=== PATIENT | female | born 1965 | race African-American/Black ===

== ENCOUNTER 2017-07-23 12:46 | Inpatient (IN) | payer MEDICARE, OTHER ==
[2017-07-23 15:23] VITALS: BMI 21.6
[2017-07-23] MEDS ORDERED: guaiFENesin/D-METHORPHAN HB 10 ML UNIT-DOSE CUPS PO PRN (16:02)
[2017-07-23] MEDS ORDERED: P-EPHED 60MG/TRIPROLIDI 2.5MG TABLET PO PRN (16:02)
[2017-07-23] MEDS ORDERED: LOPERAMIDE HCL 2 MG CAPSULE PO PRN (16:02)
[2017-07-23] MEDS ORDERED: MAGNESIUM CITRATE 300 ML BOTTLE PO PRN (16:02)
[2017-07-23] MEDS ORDERED: hydrOXYzine PAMOATE 50 MG CAPSULE (FP) PO PRN (16:02)
[2017-07-23] MEDS ORDERED: MAGNESIUM HYDROX 2400MG/30ML ORAL SUSPENSION 30 ML CUP PO PRN (16:02)
[2017-07-23] MEDS ORDERED: ACETAMINOPHEN 325 MG TABLET (FP) PO PRN (16:02)
[2017-07-23] MEDS ORDERED: IBUPROFEN 400 MG TABLET (FP) PO PRN (16:02)
[2017-07-23] MEDS ORDERED: MENTHOL/PHENOL 1 EACH UD MM PRN (16:02)
[2017-07-23] MEDS ORDERED: MAG HYDROX/AL HYDROX/SIMETH 30 ML UNIT-DOSE CUP PO PRN (16:02)
--- NOTE | 2017-07-23 16:02 | HP ---
Admission [facility] Chief Complaint: reqeusting inpatient for crack cocaien and alcohol use Allergies/Adverse Reactions: Allergies Allergy/AdvReac Type Severity Reaction Status Date / Time nicotine [From Habitrol] Allergy Mild Rash Verified 07/23/17 15:31 NICOTINE PATCH Allergy Mild Rash Uncoded 07/23/17 15:31 History of Present Illness: 52 yo f with h/o crack cocaine and alcohol dependence requesting inpatient rehab , went to ED becasue of eye infection a ew days ago and was treatd with antibiotics- 2/2 drug use PMHX HIV+, no shicidal ideation at this time, no h/o seizures. does nto drink every day. no alcohol withdrawal syndrome Exam Limitations: No Limitations - Ebola screening Have you traveled outside of the country in the last 21 days: No Have you had contact with anyone from an Ebola affected area: No Have you been sick,other than usual withdrawal symptoms: No Do you have a fever: No - Review of Systems Constitutional: No Symptoms Reported EENT: reports: Eye Pain (infection from drug use), Tearing Respiratory: reports: No Symptoms reported Cardiac: reports: No Symptoms Reported GI: reports: No Symptoms Reported : reports: No Symptoms Reported Musculoskeletal: reports: No Symptoms Reported Integumentary: reports: No Symptoms Reported Neuro: reports: No Symptoms reported Endocrine: reports: No Symptoms Reported Hematology: reports: No Symptoms Reported Psychiatric: reports: Judgement Intact, Mood/Affect Appropiate, Orientated x3, Anxious, Depressed Other Systems: Reviewed and Negative Patient History - Patient Medical History Hx Anemia: Yes (no med on albuterol inhaler) Hx Asthma: Yes Hx Chronic Obstructive Pulmonary Disease (COPD): No Hx Cancer: No Hx Cardiac Disorders: No Hx Congestive Heart Failure: No Hx Hypertension: No Hx Hypercholesterolemia: No Hx Pacemaker: No HX Cerebrovascular Accident: No Hx Seizures: No Hx Dementia: No Hx Diabetes: No Hx Gastrointestinal Disorders: Yes (gerd) Hx Liver Disease: No Hx Genitourinary Disorders: No Hx Sexually Transmitted Disorders: Yes (syphilis) Hx Renal Disease (ESRD): No Hx Thyroid Disease: No Hx Human Immunodeficiency Virus (HIV): Yes (since 1990) Hx Hepatitis C: Yes (since 1990) Hx Depression: Yes Hx Suicide Attempt: No Hx Bipolar Disorder: No Hx Schizophrenia: No - Patient Surgical History Past Surgical History: Yes Hx Neurologic Surgery: No Hx Cataract Extraction: No Hx Cardiac Surgery: No Hx Lung Surgery: No Hx Breast Surgery: Yes (biopsy of lumpes in right breast,benign,2012 follow up with pmd) Hx Breast Biopsy: No Hx Abdominal Surgery: Yes (appendectomy in 1978) Hx Appendectomy: Yes (AT THE AGE OF 13) Hx Cholecystectomy: No Hx Genitourinary Surgery: No Hx Section: No Hx Orthopedic Surgery: No Anesthesia Reaction: No - PPD History Previous Implant?: Yes Documented Results: Negative w/proof Date: 07/11/12 Results: 0 mm PPD to be Administered?: Yes - Reproductive History Patient is a Female of Child Bearing Age (11 -55 yrs old): Yes Patient : No - Smoking Cessation Smoking history: Current every day smoker Have you smoked in the past 12 months: Yes Aproximately how many cigarettes per day: 20 Cigars Per Day: 0 Hx Chewing Tobacco Use: No Initiated information on smoking cessation: Yes 'Breaking Loose' booklet given: 07/23/17 - Substance & Tx. History Hx Alcohol Use: Yes Hx Substance Use: Yes Substance Use Type: Alcohol, Cocaine Hx Substance Use Treatment: Yes ([facility]) - Substances Abused Alcohol Route: Oral Frequency: 1-2 times per week Amount used: 1-2 cans of malt liquor Age of first use: 12 Date of Last Use: 07/16/17 Crack Route: Smoking Frequency: Daily Amount used: $400 Age of first use: 18 Date of Last Use: 07/16/17 Family Disease History - Family Disease History Family Disease History: CA: Sister (ca of breast), Respiratory: Father (alcohol) Admission Physical Exam S - Vital Signs Vital Signs: Vital Signs - 24 hr 07/23/17 15:18 Temperature 97.4 F L Pulse Rate 98 H Respiratory 20 Rate Blood Pressure 146/94 - Physical General Appearance: Yes: Within Normal Limits, No Apparent Distress, Nourished, Appropriately Dressed, Disheveled, Mild Distress, Thin, Tremorous, Irritable, Sweating, Anxious HEENTM: Yes: Within Normal Limits, EOMI, Hearing grossly Normal, Normal ENT Inspection, Normocephalic, Normal Voice, ANA LAURA, Pharynx Normal, Tm's normal Respiratory: Yes: Within Normal Limits, Chest Non-Tender, Lungs Clear, Normal Breath Sounds, No Respiratory Distress, No Accessory Muscle Use Neck: Yes: Within Normal Limits, No masses,lesions,Nodules, Supple, Trachea in good position Breast: Yes: Breast Exam Deferred Cardiology: Yes: Within Normal Limits, Regular Rhythm, Regular Rate, S1, S2 Abdominal: Yes: Within Normal Limits, Normal Bowel Sounds, Non Tender, Flat, Soft Genitourinary: Yes: Within Normal Limits Back: Yes: Within Normal Limits, Normal Inspection Musculoskeletal: Yes: Within Normal Limits, full range of Motion, Gait Steady, Pelvis Stable Extremities: Yes: Within Normal Limits, Normal Capillary Refill, Normal Inspection, Normal Range of Motion, Non-Tender Neurological: Yes: air sampler II-XII NML intact, Fully Oriented, Alert, Motor Strength 5/5, Normal Response, Depressed Affect Integumentary: Yes: Within Normal Limits, Normal Color, Dry, Warm Lymphatic: Yes: Within Normal Limits - Diagnostic (1) Eye inflamed Current Visit: Yes Status: Acute (2) Alcohol dependence Current Visit: No Status: Active (3) Asthma Current Visit: No Status: Active (4) Cocaine dependence Current Visit: No Status: Active (5) Gastroesophageal reflux disease Current Visit: No Status: Active (6) Human immunodeficiency virus infection Current Visit: No Status: Active Cleared for Admission [facility] - Detox or Rehab Claeared for Rehab Admission: Yes [facility] Breath Alcohol Content Breath Alcohol Content: 0 Urine Pregancy Test - Result Urine Test Results: Negative- NO Line Present Urine Drug Screen - Results Drug Screen Negative: Yes Inpatient Rehab Admission - Initial Determination Are CD services needed?: Yes Free of communicable disease: Yes Not in need of hospitalization: Yes - Rehab Admission Criteria Lacks judgement: Yes Patient is meeting Inpatient Rehab admission criteria:: Yes
[2017-07-23] MEDS ORDERED: ALBUTEROL SO4 18 GM HFA INHALER IH PRN (16:04)
[2017-07-23] MEDS ORDERED: DOCUSATE SODIUM 100 MG CAPSULE (FP) PO PRN (16:04)
[2017-07-23] MEDS ORDERED: NICOTINE 14 MG/24 HOURS TOPICAL PATCH TD SCH (16:15)
[2017-07-23] MEDS ORDERED: NICOTINE 21 MG/24 HOURS TOPICAL PATCH TD SCH (16:15)
[2017-07-23] MEDS: TOBRAMYCIN 0.3% OPHTH SOLN 5 ML BOTTLE OD SCH ×2 (18:31→21:15)
[2017-07-23] MEDS: PANTOPRAZOLE 40 MG TABLET (FP) PO SCH (18:32)
[2017-07-23] MEDS ORDERED: PT OWN MED DRAWER 7, Y5N ONE (18:36)
[2017-07-23] MEDS ORDERED: TUBERCULIN PPD 5 TU/0.1ML VIAL ID ONE ×2 (19:34→20:58)
[2017-07-23] MEDS: EFAVIRENZ 600 MG TABLET PO SCH (21:13)
[2017-07-23] MEDS: ABACAVIR SULFATE 300 MG TABLET PO SCH (21:13)
[2017-07-23] MEDS: THIAMINE HCL 100 MG TABLET (FP) PO SCH (21:14)
[2017-07-23] MEDS: valACYclovir HCL 500 MG TABLET (FP) PO SCH (21:14)
[2017-07-23] MEDS: ARTIFICIAL TEARS (POLYVINYL ALCOHOL 1.4%) OPTH DROPS OD SCH (21:15)
[2017-07-23] MEDS: STAVUDINE PO SCH (21:55)
[2017-07-24] MEDS: TOBRAMYCIN 0.3% OPHTH SOLN 5 ML BOTTLE OD SCH ×6 (03:33→21:41)
[2017-07-24] MEDS ORDERED: PT OWN MED DRAWER 7, Y5N ONE ×3 (04:34→13:05)
[2017-07-24] MEDS: valACYclovir HCL 500 MG TABLET (FP) PO SCH ×2 (06:17→13:09)
[2017-07-24] MEDS: ARTIFICIAL TEARS (POLYVINYL ALCOHOL 1.4%) OPTH DROPS OD SCH ×3 (06:17→21:41)
[2017-07-24 10:43] LABS: HEMATOCRIT 38.2 % (32.4-45.2); HEMOGLOBIN 11.7 GM/dL (10.7-15.3); MCH 25.3 pg (25.7-33.7); MCHC 30.5 g/dl (32.0-36.0); MEAN CELL VOLUME 82.8 fl (80-96); MEAN PLT VOLUME 7.9 fl (7.5-11.1); PLATELET COUNT 211 K/MM3 (134-434); RBC 4.61 M/mm3 (3.60-5.2); RDW 15.5 % (11.6-15.6); WHITE BLOOD COUNT 5.8 K/mm3 (4.0-10.0)
[2017-07-24] MEDS: PANTOPRAZOLE 40 MG TABLET (FP) PO SCH (11:01)
[2017-07-24] MEDS: PRENATAL VITAMINS W/ FOLIC ACID TABLET (FP) PO SCH (11:01)
[2017-07-24] MEDS: ABACAVIR SULFATE 300 MG TABLET PO SCH ×2 (11:02→21:42)
[2017-07-24] MEDS: STAVUDINE PO SCH ×2 (11:02→21:42)
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
[2017-07-24 11:14] LABS: CHLORIDE 101 mmol/L (98-107); POTASSIUM 3.8 mmol/L (3.5-5.1); SODIUM 139 mmol/L (136-145)
[2017-07-24 11:34] LABS: ALBUMIN 3.7 g/dl (3.4-5.0); ALK PHOS 90 U/L (45-117); ANION GAP 13 (8-16); BILIRUBIN,TOTAL 0.4 mg/dL (0.2-1.0); BLOOD UREA NITROGEN 9 mg/dL (7-18); CALCIUM 9.6 mg/dL (8.5-10.1); CO2 25 mmol/L (21-32); CREATININE 0.5 mg/dL (0.55-1.02); GLUCOSE,RANDOM 99 mg/dL (74-106); SGOT/AST 28 U/L (15-37); SGPT/ALT 22 U/L (12-78); TOT PROT 7.9 g/dl (6.4-8.2)
[2017-07-24] MEDS ORDERED: QUEtiapine FUMARATE 25 MG TABLET (FP) PO PRN ×2 (14:28→14:42)
--- NOTE | 2017-07-24 17:13 | EKG ---
Test Reason : Blood Pressure : / mmHG Vent. Rate : 076 BPM Atrial Rate : 076 BPM P-R Int : 122 ms QRS Dur : 070 ms QT Int : 384 ms P-R-T Axes : 064 060 048 degrees QTc Int : 432 ms NORMAL SINUS RHYTHM NORMAL ECG NO PREVIOUS ECGS AVAILABLE Confirmed by ASHANTI OCASIO MD ([id number]) on 07/24/2017 5:13:10 PM Referred By: Confirmed By:ASHANTI OCASIO MD
[2017-07-24] MEDS: EFAVIRENZ 600 MG TABLET PO SCH (21:42)
[2017-07-24] MEDS: THIAMINE HCL 100 MG TABLET (FP) PO SCH (21:42)
[2017-07-25] MEDS: TOBRAMYCIN 0.3% OPHTH SOLN 5 ML BOTTLE OD SCH ×6 (02:35→21:17)
[2017-07-25] MEDS ORDERED: PT OWN MED DRAWER 7, Y5N ONE ×3 (03:18→08:42)
[2017-07-25] MEDS: ARTIFICIAL TEARS (POLYVINYL ALCOHOL 1.4%) OPTH DROPS OD SCH ×3 (06:49→21:18)
[2017-07-25] MEDS: PRENATAL VITAMINS W/ FOLIC ACID TABLET (FP) PO SCH (10:06)
[2017-07-25] MEDS: valACYclovir HCL 500 MG TABLET (FP) PO SCH (10:06)
[2017-07-25] MEDS: PANTOPRAZOLE 40 MG TABLET (FP) PO SCH (10:06)
[2017-07-25] MEDS: STAVUDINE PO SCH ×2 (10:07→21:18)
[2017-07-25] MEDS: ABACAVIR SULFATE 300 MG TABLET PO SCH ×2 (10:08→21:16)
[2017-07-25 14:36] LABS: URINE APPEARANCE CLEAR; URINE BILIRUBIN NEGATIVE (NEGATIVE); URINE BLOOD NEGATIVE (NEGATIVE); URINE COLOR LTYELLOW; URINE GLUCOSE (UA) NEGATIVE (NEGATIVE); URINE KETONE NEGATIVE (NEGATIVE); URINE LEUK ESTERASE NEGATIVE (NEGATIVE); URINE NITRITE NEGATIVE (NEGATIVE); URINE PROTEIN NEGATIVE (NEGATIVE); URINE UROBILINOGEN NEGATIVE mg/dL (0.2-1.0)
[2017-07-25 15:11] LABS: RPR REACTIVE 1:1 (NONREACTIVE)
[2017-07-25 15:17] LABS: TREPONEMA ANTIBODY PREVIOUSLY REACTIVE (NONREACTIVE)
[2017-07-25] MEDS: EFAVIRENZ 600 MG TABLET PO SCH (21:16)
[2017-07-25] MEDS: THIAMINE HCL 100 MG TABLET (FP) PO SCH (21:16)
[2017-07-26] MEDS: TOBRAMYCIN 0.3% OPHTH SOLN 5 ML BOTTLE OD SCH ×6 (01:32→21:10)
[2017-07-26] MEDS ORDERED: PT OWN MED DRAWER 7, Y5N ONE ×6 (05:50→21:05)
[2017-07-26] MEDS: ARTIFICIAL TEARS (POLYVINYL ALCOHOL 1.4%) OPTH DROPS OD SCH ×3 (06:29→21:10)
[2017-07-26] MEDS: ABACAVIR SULFATE 300 MG TABLET PO SCH ×2 (09:56→21:11)
[2017-07-26] MEDS: PRENATAL VITAMINS W/ FOLIC ACID TABLET (FP) PO SCH (09:56)
[2017-07-26] MEDS: PANTOPRAZOLE 40 MG TABLET (FP) PO SCH (09:56)
[2017-07-26] MEDS: valACYclovir HCL 500 MG TABLET (FP) PO SCH (09:56)
[2017-07-26] MEDS: STAVUDINE PO SCH ×2 (09:57→21:09)
[2017-07-26] MEDS: EFAVIRENZ 600 MG TABLET PO SCH (21:09)
[2017-07-26] MEDS: THIAMINE HCL 100 MG TABLET (FP) PO SCH (21:09)
[2017-07-27] MEDS ORDERED: PT OWN MED DRAWER 7, Y5N ONE ×7 (03:11→19:10)
[2017-07-27] MEDS: ARTIFICIAL TEARS (POLYVINYL ALCOHOL 1.4%) OPTH DROPS OD SCH ×3 (06:30→21:31)
[2017-07-27] MEDS: TOBRAMYCIN 0.3% OPHTH SOLN 5 ML BOTTLE OD SCH ×5 (06:31→21:31)
[2017-07-27] MEDS: PANTOPRAZOLE 40 MG TABLET (FP) PO SCH (09:43)
[2017-07-27] MEDS: PRENATAL VITAMINS W/ FOLIC ACID TABLET (FP) PO SCH (09:43)
[2017-07-27] MEDS: valACYclovir HCL 500 MG TABLET (FP) PO SCH (09:44)
[2017-07-27] MEDS: STAVUDINE PO SCH ×2 (09:46→21:32)
[2017-07-27] MEDS: ABACAVIR SULFATE 300 MG TABLET PO SCH ×2 (09:46→21:31)
[2017-07-27] MEDS: THIAMINE HCL 100 MG TABLET (FP) PO SCH (21:31)
[2017-07-27] MEDS: EFAVIRENZ 600 MG TABLET PO SCH (21:31)
[2017-07-28] MEDS: ARTIFICIAL TEARS (POLYVINYL ALCOHOL 1.4%) OPTH DROPS OD SCH ×3 (06:32→21:06)
[2017-07-28] MEDS: TOBRAMYCIN 0.3% OPHTH SOLN 5 ML BOTTLE OD SCH ×5 (06:32→21:06)
[2017-07-28] MEDS ORDERED: PT OWN MED DRAWER 7, Y5N ONE ×4 (08:28→19:34)
[2017-07-28] MEDS: ABACAVIR SULFATE 300 MG TABLET PO SCH ×2 (10:16→21:06)
[2017-07-28] MEDS: PRENATAL VITAMINS W/ FOLIC ACID TABLET (FP) PO SCH (10:16)
[2017-07-28] MEDS: PANTOPRAZOLE 40 MG TABLET (FP) PO SCH (10:17)
[2017-07-28] MEDS: valACYclovir HCL 500 MG TABLET (FP) PO SCH (10:17)
[2017-07-28] MEDS: STAVUDINE PO SCH ×2 (10:17→21:07)
[2017-07-28] MEDS: EFAVIRENZ 600 MG TABLET PO SCH (21:06)
[2017-07-28] MEDS: THIAMINE HCL 100 MG TABLET (FP) PO SCH (21:06)
[2017-07-29] MEDS ORDERED: PT OWN MED DRAWER 7, Y5N ONE ×2 (06:17→06:28)
[2017-07-29] MEDS: TOBRAMYCIN 0.3% OPHTH SOLN 5 ML BOTTLE OD SCH ×5 (06:26→21:23)
[2017-07-29] MEDS: ARTIFICIAL TEARS (POLYVINYL ALCOHOL 1.4%) OPTH DROPS OD SCH ×3 (06:26→21:24)
[2017-07-29] MEDS: STAVUDINE PO SCH ×2 (10:00→21:23)
[2017-07-29] MEDS: ABACAVIR SULFATE 300 MG TABLET PO SCH ×2 (10:01→21:22)
[2017-07-29] MEDS: PRENATAL VITAMINS W/ FOLIC ACID TABLET (FP) PO SCH (10:01)
[2017-07-29] MEDS: PANTOPRAZOLE 40 MG TABLET (FP) PO SCH (10:01)
[2017-07-29] MEDS: valACYclovir HCL 500 MG TABLET (FP) PO SCH (10:01)
[2017-07-29] MEDS: NICOTINE POLACRILEX 2 MG GUM BC PRN (13:21)
[2017-07-29] MEDS: THIAMINE HCL 100 MG TABLET (FP) PO SCH (21:22)
[2017-07-29] MEDS: EFAVIRENZ 600 MG TABLET PO SCH (21:22)
[2017-07-30] MEDS: ARTIFICIAL TEARS (POLYVINYL ALCOHOL 1.4%) OPTH DROPS OD SCH ×3 (06:31→21:17)
[2017-07-30] MEDS: TOBRAMYCIN 0.3% OPHTH SOLN 5 ML BOTTLE OD SCH ×5 (06:31→21:16)
[2017-07-30] MEDS ORDERED: PT OWN MED DRAWER 7, Y5N ONE ×4 (06:33→21:17)
[2017-07-30] MEDS: PRENATAL VITAMINS W/ FOLIC ACID TABLET (FP) PO SCH (10:09)
[2017-07-30] MEDS: STAVUDINE PO SCH ×2 (10:09→21:16)
[2017-07-30] MEDS: ABACAVIR SULFATE 300 MG TABLET PO SCH ×2 (10:09→21:18)
[2017-07-30] MEDS: PANTOPRAZOLE 40 MG TABLET (FP) PO SCH (10:09)
[2017-07-30] MEDS: valACYclovir HCL 500 MG TABLET (FP) PO SCH (10:10)
[2017-07-30] MEDS: EFAVIRENZ 600 MG TABLET PO SCH (21:15)
[2017-07-30] MEDS: THIAMINE HCL 100 MG TABLET (FP) PO SCH (21:16)
[2017-07-31] MEDS ORDERED: PT OWN MED DRAWER 7, Y5N ONE ×4 (03:24→10:12)
[2017-07-31] MEDS: TOBRAMYCIN 0.3% OPHTH SOLN 5 ML BOTTLE OD SCH ×5 (07:05→21:19)
[2017-07-31] MEDS: ARTIFICIAL TEARS (POLYVINYL ALCOHOL 1.4%) OPTH DROPS OD SCH ×3 (07:05→21:19)
[2017-07-31] MEDS: valACYclovir HCL 500 MG TABLET (FP) PO SCH (10:09)
[2017-07-31] MEDS: PRENATAL VITAMINS W/ FOLIC ACID TABLET (FP) PO SCH (10:09)
[2017-07-31] MEDS: PANTOPRAZOLE 40 MG TABLET (FP) PO SCH (10:09)
[2017-07-31] MEDS: STAVUDINE PO SCH ×2 (10:10→21:18)
[2017-07-31] MEDS: ABACAVIR SULFATE 300 MG TABLET PO SCH ×2 (10:26→21:18)
[2017-07-31] MEDS: EFAVIRENZ 600 MG TABLET PO SCH (21:18)
[2017-07-31] MEDS: THIAMINE HCL 100 MG TABLET (FP) PO SCH (21:19)
[2017-08-01] MEDS ORDERED: PT OWN MED DRAWER 7, Y5N ONE ×4 (03:08→16:39)
[2017-08-01] MEDS: ARTIFICIAL TEARS (POLYVINYL ALCOHOL 1.4%) OPTH DROPS OD SCH ×3 (06:25→21:16)
[2017-08-01] MEDS: TOBRAMYCIN 0.3% OPHTH SOLN 5 ML BOTTLE OD SCH ×5 (06:25→21:16)
[2017-08-01] MEDS: valACYclovir HCL 500 MG TABLET (FP) PO SCH (10:14)
[2017-08-01] MEDS: STAVUDINE PO SCH ×2 (10:15→21:17)
[2017-08-01] MEDS: PRENATAL VITAMINS W/ FOLIC ACID TABLET (FP) PO SCH (10:15)
[2017-08-01] MEDS: PANTOPRAZOLE 40 MG TABLET (FP) PO SCH (10:15)
[2017-08-01] MEDS: ABACAVIR SULFATE 300 MG TABLET PO SCH ×2 (10:15→21:16)
[2017-08-01] MEDS: EFAVIRENZ 600 MG TABLET PO SCH (21:16)
[2017-08-01] MEDS: THIAMINE HCL 100 MG TABLET (FP) PO SCH (21:16)
[2017-08-02] MEDS: ARTIFICIAL TEARS (POLYVINYL ALCOHOL 1.4%) OPTH DROPS OD SCH ×3 (06:27→21:33)
[2017-08-02] MEDS: TOBRAMYCIN 0.3% OPHTH SOLN 5 ML BOTTLE OD SCH ×5 (06:27→21:33)
[2017-08-02] MEDS ORDERED: PT OWN MED DRAWER 7, Y5N ONE ×3 (08:45→16:01)
[2017-08-02] MEDS: PRENATAL VITAMINS W/ FOLIC ACID TABLET (FP) PO SCH (10:17)
[2017-08-02] MEDS: ABACAVIR SULFATE 300 MG TABLET PO SCH ×2 (10:17→21:33)
[2017-08-02] MEDS: valACYclovir HCL 500 MG TABLET (FP) PO SCH (10:17)
[2017-08-02] MEDS: PANTOPRAZOLE 40 MG TABLET (FP) PO SCH (10:17)
[2017-08-02] MEDS: STAVUDINE PO SCH ×2 (10:19→21:33)
[2017-08-02] MEDS: THIAMINE HCL 100 MG TABLET (FP) PO SCH (21:32)
[2017-08-02] MEDS: EFAVIRENZ 600 MG TABLET PO SCH (21:33)
[2017-08-03] MEDS ORDERED: PT OWN MED DRAWER 7, Y5N ONE ×3 (05:53→13:23)
[2017-08-03] MEDS: TOBRAMYCIN 0.3% OPHTH SOLN 5 ML BOTTLE OD SCH ×5 (06:36→21:19)
[2017-08-03] MEDS: ARTIFICIAL TEARS (POLYVINYL ALCOHOL 1.4%) OPTH DROPS OD SCH ×3 (06:36→21:20)
[2017-08-03] MEDS: ABACAVIR SULFATE 300 MG TABLET PO SCH ×2 (10:05→21:19)
[2017-08-03] MEDS: PRENATAL VITAMINS W/ FOLIC ACID TABLET (FP) PO SCH (10:05)
[2017-08-03] MEDS: PANTOPRAZOLE 40 MG TABLET (FP) PO SCH (10:05)
[2017-08-03] MEDS: valACYclovir HCL 500 MG TABLET (FP) PO SCH (10:05)
[2017-08-03] MEDS: STAVUDINE PO SCH ×2 (10:05→21:20)
[2017-08-03] MEDS: THIAMINE HCL 100 MG TABLET (FP) PO SCH (21:18)
[2017-08-03] MEDS: EFAVIRENZ 600 MG TABLET PO SCH (21:19)
[2017-08-04] MEDS ORDERED: PT OWN MED DRAWER 7, Y5N ONE ×3 (01:18→12:46)
[2017-08-04] MEDS: ARTIFICIAL TEARS (POLYVINYL ALCOHOL 1.4%) OPTH DROPS OD SCH ×3 (06:46→21:21)
[2017-08-04] MEDS: TOBRAMYCIN 0.3% OPHTH SOLN 5 ML BOTTLE OD SCH ×5 (06:46→21:20)
[2017-08-04] MEDS: STAVUDINE PO SCH ×2 (10:03→21:21)
[2017-08-04] MEDS: PRENATAL VITAMINS W/ FOLIC ACID TABLET (FP) PO SCH (10:03)
[2017-08-04] MEDS: ABACAVIR SULFATE 300 MG TABLET PO SCH ×2 (10:03→21:20)
[2017-08-04] MEDS: PANTOPRAZOLE 40 MG TABLET (FP) PO SCH (10:03)
[2017-08-04] MEDS: valACYclovir HCL 500 MG TABLET (FP) PO SCH (10:03)
[2017-08-04] MEDS: THIAMINE HCL 100 MG TABLET (FP) PO SCH (21:20)
[2017-08-04] MEDS: EFAVIRENZ 600 MG TABLET PO SCH (21:20)
[2017-08-05] MEDS ORDERED: PT OWN MED DRAWER 7, Y5N ONE ×4 (03:30→16:03)
[2017-08-05] MEDS: ARTIFICIAL TEARS (POLYVINYL ALCOHOL 1.4%) OPTH DROPS OD SCH ×3 (06:38→21:21)
[2017-08-05] MEDS: TOBRAMYCIN 0.3% OPHTH SOLN 5 ML BOTTLE OD SCH ×5 (06:38→21:21)
[2017-08-05] MEDS: STAVUDINE PO SCH ×2 (10:05→21:40)
[2017-08-05] MEDS: valACYclovir HCL 500 MG TABLET (FP) PO SCH (10:06)
[2017-08-05] MEDS: PANTOPRAZOLE 40 MG TABLET (FP) PO SCH (10:06)
[2017-08-05] MEDS: ABACAVIR SULFATE 300 MG TABLET PO SCH ×2 (10:06→21:20)
[2017-08-05] MEDS: PRENATAL VITAMINS W/ FOLIC ACID TABLET (FP) PO SCH (10:06)
--- NOTE | 2017-08-05 10:45 | PN ---
Psychiatric Progress Note Vital Signs: Vital Signs Period Temp Pulse Resp BP Sys/Gillespie Pulse Ox Last 24 Hr 97.9 F 93 18-18 118/79 Date of Session: 08/05/17 Chief Complaint:: progress update HPI: Patient addressed alcohol and Cocaine dependence comorbid with Bipolar disorder. ROS: Significant for HIV+,GERD,BA,H/O pancreatitis.. Current Medications: Active Medications Generic Name Dose Route Start Last Admin Trade Name Freq PRN Reason Stop Dose Admin Abacavir Sulfate 300 mg 07/23/17 22:00 08/05/17 10:06 Ziagen - PO 300 mg BID DARRELL Administration Acetaminophen 650 mg 07/23/17 16:02 07/28/17 13:07 Tylenol - PO 650 mg Q4H PRN Administration FEVER Al Hydroxide/Mg Hydroxide 30 ml 07/23/17 16:02 Mylanta Oral Suspension - PO Q6H PRN DYSPEPSIA Albuterol Sulfate 2 puff 07/23/17 16:04 Ventolin Hfa Inhaler - IH Q4H PRN ASTHMA Artificial Tears 1 drop 07/23/17 22:00 08/05/17 06:38 Artificial Tears OD 1 drop TID DARRELL Administration Docusate Sodium 100 mg 07/23/17 16:04 Colace - PO BID PRN CONSTIPATION Efavirenz 600 mg 07/23/17 22:00 08/04/17 21:20 Sustiva - PO 600 mg HS DARRELL Administration Eucalyptus/Menthol/Phenol/Sorbitol 1 each 07/23/17 16:02 Cepastat Lozenge - MM Q4H PRN SORE THROAT Guaifenesin 10 ml 07/23/17 16:02 Robitussin Dm - PO Q6H PRN COUGH Hydroxyzine Pamoate 50 mg 07/23/17 16:02 Vistaril - PO Q4H PRN AGITATION Ibuprofen 400 mg 07/23/17 16:02 Motrin - PO Q6H PRN Pain level 4-6 Loperamide HCl 4 mg 07/23/17 16:02 Imodium - PO Q6H PRN DIARRHEA Magnesium Citrate 300 ml 07/23/17 16:02 Citroma - PO Q48H PRN CONSTIPATION Magnesium Hydroxide 30 ml 07/23/17 16:02 Milk Of Magnesia - PO DAILY PRN CONSTIPATION Nicotine Polacrilex 2 mg 07/23/17 16:02 07/29/17 13:21 Nicorette Gum - BC 2 mg Q2H PRN Administration NICOTINE REPLACEMENT RX Pantoprazole Sodium 40 mg 07/23/17 18:00 08/05/17 10:06 Protonix - PO 40 mg DAILY DARRELL Administration Multivit/Folic Acid/Iron 1 tab 07/24/17 10:00 08/05/17 10:06 Vitamins (Sjr) - PO 1 tab DAILY DARRELL Administration Pseudoephedrine/Triprolidine 1 combo 07/23/17 16:02 Actifed - PO TID PRN NASAL CONGESTION Quetiapine Fumarate 25 mg 07/24/17 14:42 Seroquel - PO BID PRN ANXIETY Stavudine 40 mg 07/23/17 22:00 08/05/17 10:05 Zerit - PO 40 mg BID DARRELL Administration Thiamine HCl 100 mg 07/23/17 22:00 08/04/17 21:20 Vitamin B1 - PO 100 mg HS DARRELL Administration Tobramycin Sulfate 1 drop 07/26/17 06:00 08/05/17 10:07 Tobrex Ophthalmic Solution - OD 1 drop Q4HWA DARRELL Administration Valacyclovir HCl 1,000 mg 07/25/17 10:00 08/05/17 10:06 Valtrex - PO 1,000 mg DAILY DARRELL Administration Current Side Effect: No Lab tests ordered: No Lab tests reviewed: Yes Provider note:: patient will complete this program Next week.Patient reports that she made some progress toward to her recovery.She has met her short term treatment goals and will continue to address her issues on outpatient basis( continue AA and NA meetings in [place], [place]).patient reports that Seroquel 25 mg po tid prn helps to cope with with anxiety,some mood instability. Patient identifies areas of difficulties,behaviors which contribute to relapse.Patient focuses on insight gained in treatment including importance of changing attitude towards her treatment.Plans to utilize support system and coping skills has been discussed as well. Total face to face time:: 30 Mental Status Exam - Mental Status Exam Alert and Oriented to: Time, Place, Person Cognitive Function: Grossly Intact Patient Appearance: Well Groomed Mood: Hopeful, Euthymic Affect: Appropriate, Mood Congruent Patient Behavior: Cooperative Speech Pattern: Clear Voice Loudness: Normal Thought Process: Goal Oriented Thought Disorder: Not Present Hallucinations: Denies Suicidal Ideation: Denies Homicidal Ideation: Denies Insight/Judgement: Fair Sleep: Fair Muscle strength/Tone: Normal Gait/Station: Normal Psychiatric Treatment Plan - Problem List (1) Alcohol dependence Current Visit: Yes (2) Asthma Current Visit: Yes (3) Cocaine dependence Current Visit: Yes (4) Gastroesophageal reflux disease Current Visit: Yes (5) Human immunodeficiency virus infection Current Visit: Yes (6) Weight decreased Current Visit: Yes (7) breast lumps by history told to be benign by biopsy Current Visit: Yes (8) Bipolar disorder Current Visit: Yes (9) pancreatitis by history Current Visit: Yes
[2017-08-05] MEDS: DOCUSATE SODIUM 100 MG CAPSULE (FP) PO SCH ×2 (14:44→21:20)
[2017-08-05] MEDS: THIAMINE HCL 100 MG TABLET (FP) PO SCH (21:20)
[2017-08-05] MEDS: EFAVIRENZ 600 MG TABLET PO SCH (21:20)
[2017-08-06] MEDS ORDERED: PT OWN MED DRAWER 7, Y5N ONE ×7 (03:29→19:13)
[2017-08-06] MEDS: ARTIFICIAL TEARS (POLYVINYL ALCOHOL 1.4%) OPTH DROPS OD SCH ×3 (06:40→21:34)
[2017-08-06] MEDS: TOBRAMYCIN 0.3% OPHTH SOLN 5 ML BOTTLE OD SCH ×5 (06:40→21:34)
[2017-08-06] MEDS: DOCUSATE SODIUM 100 MG CAPSULE (FP) PO SCH ×3 (06:41→21:34)
[2017-08-06] MEDS: PANTOPRAZOLE 40 MG TABLET (FP) PO SCH (10:27)
[2017-08-06] MEDS: PRENATAL VITAMINS W/ FOLIC ACID TABLET (FP) PO SCH (10:27)
[2017-08-06] MEDS: valACYclovir HCL 500 MG TABLET (FP) PO SCH (10:27)
[2017-08-06] MEDS: ABACAVIR SULFATE 300 MG TABLET PO SCH ×2 (10:27→21:34)
[2017-08-06] MEDS: STAVUDINE PO SCH ×2 (10:28→21:35)
[2017-08-06] MEDS: EFAVIRENZ 600 MG TABLET PO SCH (21:34)
[2017-08-06] MEDS: THIAMINE HCL 100 MG TABLET (FP) PO SCH (21:34)
[2017-08-07] MEDS: ARTIFICIAL TEARS (POLYVINYL ALCOHOL 1.4%) OPTH DROPS OD SCH ×3 (06:39→21:32)
[2017-08-07] MEDS: TOBRAMYCIN 0.3% OPHTH SOLN 5 ML BOTTLE OD SCH ×5 (06:39→21:33)
[2017-08-07] MEDS: DOCUSATE SODIUM 100 MG CAPSULE (FP) PO SCH ×3 (06:40→21:31)
[2017-08-07] MEDS: PANTOPRAZOLE 40 MG TABLET (FP) PO SCH (10:01)
[2017-08-07] MEDS: ABACAVIR SULFATE 300 MG TABLET PO SCH ×2 (10:01→21:31)
[2017-08-07] MEDS: PRENATAL VITAMINS W/ FOLIC ACID TABLET (FP) PO SCH (10:01)
[2017-08-07] MEDS: valACYclovir HCL 500 MG TABLET (FP) PO SCH (10:01)
[2017-08-07] MEDS: STAVUDINE PO SCH ×2 (10:02→21:32)
[2017-08-07] MEDS ORDERED: PT OWN MED DRAWER 7, Y5N ONE ×3 (15:26→15:53)
[2017-08-07] MEDS: EFAVIRENZ 600 MG TABLET PO SCH (21:31)
[2017-08-07] MEDS: THIAMINE HCL 100 MG TABLET (FP) PO SCH (21:31)
[2017-08-08] MEDS ORDERED: PT OWN MED DRAWER 7, Y5N ONE ×5 (03:15→20:24)
[2017-08-08] MEDS: DOCUSATE SODIUM 100 MG CAPSULE (FP) PO SCH ×3 (06:26→21:12)
[2017-08-08] MEDS: TOBRAMYCIN 0.3% OPHTH SOLN 5 ML BOTTLE OD SCH ×5 (06:27→21:12)
[2017-08-08] MEDS: ARTIFICIAL TEARS (POLYVINYL ALCOHOL 1.4%) OPTH DROPS OD SCH ×3 (06:27→21:14)
[2017-08-08] MEDS: PRENATAL VITAMINS W/ FOLIC ACID TABLET (FP) PO SCH (10:03)
[2017-08-08] MEDS: PANTOPRAZOLE 40 MG TABLET (FP) PO SCH (10:03)
[2017-08-08] MEDS: ABACAVIR SULFATE 300 MG TABLET PO SCH ×2 (10:04→21:12)
[2017-08-08] MEDS: valACYclovir HCL 500 MG TABLET (FP) PO SCH (10:04)
[2017-08-08] MEDS: STAVUDINE PO SCH ×2 (10:05→21:15)
[2017-08-08] MEDS: NICOTINE POLACRILEX 2 MG GUM BC PRN (10:06)
[2017-08-08] MEDS: EFAVIRENZ 600 MG TABLET PO SCH (21:12)
[2017-08-08] MEDS: THIAMINE HCL 100 MG TABLET (FP) PO SCH (21:12)
[2017-08-09] MEDS ORDERED: PT OWN MED DRAWER 7, Y5N ONE ×2 (05:53→22:08)
[2017-08-09] MEDS: DOCUSATE SODIUM 100 MG CAPSULE (FP) PO SCH ×3 (06:40→21:13)
[2017-08-09] MEDS: ARTIFICIAL TEARS (POLYVINYL ALCOHOL 1.4%) OPTH DROPS OD SCH ×3 (06:40→21:13)
[2017-08-09] MEDS: TOBRAMYCIN 0.3% OPHTH SOLN 5 ML BOTTLE OD SCH ×2 (06:41→10:23)
[2017-08-09] MEDS: STAVUDINE PO SCH ×2 (10:22→21:14)
[2017-08-09] MEDS: ABACAVIR SULFATE 300 MG TABLET PO SCH ×2 (10:23→21:13)
[2017-08-09] MEDS: PRENATAL VITAMINS W/ FOLIC ACID TABLET (FP) PO SCH (10:23)
[2017-08-09] MEDS: valACYclovir HCL 500 MG TABLET (FP) PO SCH (10:23)
[2017-08-09] MEDS: PANTOPRAZOLE 40 MG TABLET (FP) PO SCH (10:23)
[2017-08-09] MEDS: EFAVIRENZ 600 MG TABLET PO SCH (21:13)
[2017-08-09] MEDS: THIAMINE HCL 100 MG TABLET (FP) PO SCH (21:13)
[2017-08-10] MEDS: ARTIFICIAL TEARS (POLYVINYL ALCOHOL 1.4%) OPTH DROPS OD SCH ×3 (06:20→21:36)
[2017-08-10] MEDS: DOCUSATE SODIUM 100 MG CAPSULE (FP) PO SCH ×3 (06:20→21:36)
[2017-08-10] MEDS ORDERED: PT OWN MED DRAWER 7, Y5N ONE ×2 (07:59→13:52)
[2017-08-10] MEDS: valACYclovir HCL 500 MG TABLET (FP) PO SCH (10:09)
[2017-08-10] MEDS: PRENATAL VITAMINS W/ FOLIC ACID TABLET (FP) PO SCH (10:09)
[2017-08-10] MEDS: PANTOPRAZOLE 40 MG TABLET (FP) PO SCH (10:09)
[2017-08-10] MEDS: ABACAVIR SULFATE 300 MG TABLET PO SCH ×2 (10:10→21:36)
[2017-08-10] MEDS: STAVUDINE PO SCH ×2 (10:10→21:36)
[2017-08-10] MEDS: THIAMINE HCL 100 MG TABLET (FP) PO SCH (21:36)
[2017-08-10] MEDS: EFAVIRENZ 600 MG TABLET PO SCH (21:36)
[2017-08-11] MEDS ORDERED: PT OWN MED DRAWER 7, Y5N ONE ×5 (03:49→20:23)
[2017-08-11] MEDS: ARTIFICIAL TEARS (POLYVINYL ALCOHOL 1.4%) OPTH DROPS OD SCH ×3 (06:45→21:36)
[2017-08-11] MEDS: DOCUSATE SODIUM 100 MG CAPSULE (FP) PO SCH ×3 (06:45→21:36)
[2017-08-11] MEDS: ABACAVIR SULFATE 300 MG TABLET PO SCH ×2 (10:13→21:36)
[2017-08-11] MEDS: valACYclovir HCL 500 MG TABLET (FP) PO SCH (10:13)
[2017-08-11] MEDS: PANTOPRAZOLE 40 MG TABLET (FP) PO SCH (10:13)
[2017-08-11] MEDS: PRENATAL VITAMINS W/ FOLIC ACID TABLET (FP) PO SCH (10:13)
[2017-08-11] MEDS: STAVUDINE PO SCH ×2 (10:14→21:36)
[2017-08-11] MEDS: THIAMINE HCL 100 MG TABLET (FP) PO SCH (21:36)
[2017-08-11] MEDS: EFAVIRENZ 600 MG TABLET PO SCH (21:36)
[2017-08-12] MEDS ORDERED: PT OWN MED DRAWER 7, Y5N ONE ×2 (03:08→08:27)
[2017-08-12] MEDS: DOCUSATE SODIUM 100 MG CAPSULE (FP) PO SCH (06:18)
[2017-08-12] MEDS: ARTIFICIAL TEARS (POLYVINYL ALCOHOL 1.4%) OPTH DROPS OD SCH (06:18)
[2017-08-12 07:44] VITALS: BP 117/80; PULSE 97; TEMP 97.2
--- NOTE | 2017-08-12 09:02 | PN ---
Psychiatric Progress Note Vital Signs: Vital Signs Period Temp Pulse Resp BP Sys/Gillespie Pulse Ox Last 24 Hr 97.2 F 97 16-18 117/80 Date of Session: 08/12/17 Chief Complaint:: Discharge visit Current Medications: Active Medications Generic Name Dose Route Start Last Admin Trade Name Freq PRN Reason Stop Dose Admin Abacavir Sulfate 300 mg 07/23/17 22:00 08/11/17 21:36 Ziagen - PO 300 mg BID DARRELL Administration Acetaminophen 650 mg 07/23/17 16:02 07/28/17 13:07 Tylenol - PO 650 mg Q4H PRN Administration FEVER Al Hydroxide/Mg Hydroxide 30 ml 07/23/17 16:02 Mylanta Oral Suspension - PO Q6H PRN DYSPEPSIA Albuterol Sulfate 2 puff 07/23/17 16:04 Ventolin Hfa Inhaler - IH Q4H PRN ASTHMA Artificial Tears 1 drop 07/23/17 22:00 08/12/17 06:18 Artificial Tears OD 1 drop TID DARRELL Administration Docusate Sodium 100 mg 08/05/17 14:00 08/12/17 06:18 Colace - PO 100 mg TID DARRELL Administration Efavirenz 600 mg 07/23/17 22:00 08/11/17 21:36 Sustiva - PO 600 mg HS DARRELL Administration Eucalyptus/Menthol/Phenol/Sorbitol 1 each 07/23/17 16:02 Cepastat Lozenge - MM Q4H PRN SORE THROAT Guaifenesin 10 ml 07/23/17 16:02 Robitussin Dm - PO Q6H PRN COUGH Hydroxyzine Pamoate 50 mg 07/23/17 16:02 Vistaril - PO Q4H PRN AGITATION Ibuprofen 400 mg 07/23/17 16:02 Motrin - PO Q6H PRN Pain level 4-6 Loperamide HCl 4 mg 07/23/17 16:02 Imodium - PO Q6H PRN DIARRHEA Magnesium Citrate 300 ml 07/23/17 16:02 Citroma - PO Q48H PRN CONSTIPATION Magnesium Hydroxide 30 ml 07/23/17 16:02 Milk Of Magnesia - PO DAILY PRN CONSTIPATION Nicotine Polacrilex 2 mg 07/23/17 16:02 08/08/17 10:06 Nicorette Gum - BC 2 mg Q2H PRN Administration NICOTINE REPLACEMENT RX Pantoprazole Sodium 40 mg 07/23/17 18:00 08/11/17 10:13 Protonix - PO 40 mg DAILY DARRELL Administration Multivit/Folic Acid/Iron 1 tab 07/24/17 10:00 08/11/17 10:13 Vitamins (Sjr) - PO 1 tab DAILY DARRELL Administration Pseudoephedrine/Triprolidine 1 combo 07/23/17 16:02 Actifed - PO TID PRN NASAL CONGESTION Quetiapine Fumarate 25 mg 07/24/17 14:42 Seroquel - PO BID PRN ANXIETY Stavudine 40 mg 07/23/17 22:00 08/11/17 21:36 Zerit - PO 40 mg BID DARRELL Administration Thiamine HCl 100 mg 07/23/17 22:00 08/11/17 21:36 Vitamin B1 - PO 100 mg HS DARRELL Administration Valacyclovir HCl 1,000 mg 07/25/17 10:00 08/11/17 10:13 Valtrex - PO 1,000 mg DAILY DARRELL Administration Current Side Effect: No Lab tests ordered: No Lab tests reviewed: Yes Provider note:: Patient completed this program today.She has met her treatment goals and will continue to address her issues on outpatient basis .Patient reports finding that Seroquel 25 mg po hs help to cope with some sleeping difficulties and mood instability.Script for 30 days supply provided.Patient is stable foe discharge today.Supportive therapy provided focusing on relapse prevention,coping skills,supports utilization has been discussed with the patient. Total face to face time:: 30 Mental Status Exam - Mental Status Exam Alert and Oriented to: Time, Place, Person Cognitive Function: Grossly Intact Patient Appearance: Well Groomed Mood: Euthymic Affect: Appropriate, Mood Congruent Patient Behavior: Cooperative Speech Pattern: Clear Voice Loudness: Normal Thought Process: Goal Oriented Thought Disorder: Not Present Hallucinations: Denies Suicidal Ideation: Denies Homicidal Ideation: Denies Insight/Judgement: Fair Sleep: Fair Appetite: Good Muscle strength/Tone: Normal Gait/Station: Normal Psychiatric Treatment Plan - Problem List (1) Alcohol dependence Current Visit: Yes (2) Asthma Current Visit: Yes (3) Cocaine dependence Current Visit: Yes (4) Gastroesophageal reflux disease Current Visit: Yes (5) Human immunodeficiency virus infection Current Visit: Yes (6) Weight decreased Current Visit: Yes (7) breast lumps by history told to be benign by biopsy Current Visit: Yes (8) Bipolar disorder Current Visit: Yes (9) pancreatitis by history Current Visit: Yes
[2017-08-12] MEDS: PANTOPRAZOLE 40 MG TABLET (FP) PO SCH (09:11)
[2017-08-12] MEDS: PRENATAL VITAMINS W/ FOLIC ACID TABLET (FP) PO SCH (09:11)
[2017-08-12] MEDS: valACYclovir HCL 500 MG TABLET (FP) PO SCH (09:11)
[2017-08-12] MEDS: STAVUDINE PO SCH (09:12)
[2017-08-12] MEDS: ABACAVIR SULFATE 300 MG TABLET PO SCH (09:12)
== END 2017-08-12 10:30 | disposition home or self-care (01) | DRG 895 ==
LOC: YASAS 12:46 → Y3E 16:40
PROVIDERS: ADMIT Psychiatry & Neurology Psychiatry; ATTEND Psychiatry & Neurology Psychiatry
PROC: HZ42ZZZ Group Counseling for Substance Abuse Treatment, Cognitive-Behavioral (ICD-10-PCS; principal; 2017-07-23)
DX: F10.20 Alcohol dependence, uncomplicated (principal); F14.20 Cocaine dependence, uncomplicated; F17.210 Nicotine dependence, cigarettes, uncomplicated; F31.9 Bipolar disorder, unspecified; Z21 Asymptomatic human immunodeficiency virus [HIV] infection status; J45.909 Unspecified asthma, uncomplicated; K21.9 Gastro-esophageal reflux disease without esophagitis; B18.2 Chronic viral hepatitis C; H57.8 Other specified disorders of eye and adnexa; Z87.42 Personal history of other diseases of the female genital tract; Z87.19 Personal history of other diseases of the digestive system; Z87.898 Personal history of other specified conditions
CPT/HCPCS: 36415; 80053; 81003; 85027; 86593; 86780; 93005; 93010